=== PATIENT | female | born 1940 | race Caucasian/White ===

== ENCOUNTER 2017-12-31 09:27 | Inpatient (IN) ==
--- NOTE | 2017-12-31 09:00 | Discharge Summary ---
<Eliecer Robledo - Last Filed: 12/31/17 09:57> Orders not resulted at time of discharge: Pending orders 12/31/17 08:08 Left Shoulder Complete [XR shoulder complete LT] [XR] Routine Hemoglobin and Hematocrit [HEME] Routine Date of Encounter: 12/31/17 - Discharge Diagnosis (1) Rotator cuff tear arthropathy of left shoulder Priority: Primary Status: Chronic (2) Status post reverse total replacement of left shoulder Priority: Primary Status: Acute (3) Hypertension Priority: Secondary Status: Chronic Qualifiers: Hypertension type: unspecified Qualified Code(s): I10 - Essential (primary ) hypertension (4) Hyperlipidemia Priority: Secondary Status: Chronic Qualifiers: Hyperlipidemia type: unspecified Qualified Code(s): E78.5 - Hyperlipidemia , unspecified (5) Coronary artery disease Priority: Secondary Status: Chronic Qualifiers: Coronary Disease-Associated Artery/Lesion type: unspecified vessel or lesion type [place] vs. transplanted heart: [place] heart Associated angina: angina presence unspecified Qualified Code(s): I25.10 - Atherosclerotic heart disease of [place] coronary artery without angina pectoris (6) History of heart artery stent Priority: Secondary Status: Chronic (7) Chronic kidney disease, stage II (mild) Priority: Secondary Status: Chronic (8) COPD (chronic obstructive pulmonary disease) Priority: Secondary Status: Acute Qualifiers: COPD type: unspecified COPD Qualified Code(s): J44.9 - Chronic obstructive pulmonary disease, unspecified (9) Asthma Priority: Secondary Status: Chronic Qualifiers: Asthma severity: unspecified severity Asthma persistence: unspecified Asthma complication type: unspecified Qualified Code(s): J45.909 - Unspecified asthma, uncomplicated (10) Obesity (BMI 30.0-34.9) Priority: Secondary Status: Chronic - Hospital Course Hospital course: Ms. Beavers is a 77 year old female - Time Spent with Patient Total time spent providing and/or coordinating discharge services: - Discharge Medications Home Medications: Albuterol Sulfate [Ventolin Hfa] 2 puff IH Q4H PRN 12/31/17 [History] Aspirin [Lo-Dose Aspirin EC] 81 mg PO DAILY 12/31/17 [History] Atorvastatin [Lipitor] 40 mg PO DAILY 12/31/17 [History] Cholecalciferol (D-3) [Vitamin D] 1,000 unit PO DAILY 12/31/17 [History] Cyanocobalamin (Vitamin B-12) [Vitamin B-12] 5,000 mcg SL DAILY 12/31/17 [ History] Isosorbide MONOnitrate (24 HR) [Imdur] 60 mg PO DAILY 12/31/17 [History] Metoprolol Succinate [Toprol Xl] 50 mg PO DAILY 12/31/17 [History] OxyCODONE Immed Rel [Roxicodone 5 MG] 5 mg PO Q4HR PRN 5 Days #20 tablet [Rx] Valsartan 160 mg PO DAILY 12/31/17 [History] amLODIPine [Norvasc] 5 mg PO DAILY 12/31/17 [History] Allergies/Adverse Reactions: 3 Allergy/AdvReac Type Severity Reaction Status Date / Time bee venom protein (honey bee) Allergy Swelling Verified 12/31/17 09:54 of Lip/Tongue/Throat Iodinated Contrast- Oral and Allergy Swelling Verified 12/31/17 09:54 IV Dye of Lip/Tongue/Throat povidone-iodine AdvReac Itching Verified 12/31/17 09:54 [From Betadine] soap [From Betadine] AdvReac Itching Verified 12/31/17 09:54 Primary care physician: Mishel Bolden - Patient Status Disposition: Home Health Service Condition: Good - Discharge Instructions Follow Up With: Mishel Bolden [Primary Care Provider] - <Smita Antonio E - Last Filed: 01/01/18 16:03> Orders not resulted at time of discharge: Pending orders 12/31/17 09:46 US anesthesia pain block [US] Routine 01/02/18 04:00 Hemoglobin and Hematocrit [HEME] AM 0400 Date of Encounter: 01/01/18 Time of Encounter: 13:00 - Discharge Diagnosis (1) COPD (chronic obstructive pulmonary disease) Priority: Secondary Status: Chronic Qualifiers: COPD type: unspecified COPD Qualified Code(s): J44.9 - Chronic obstructive pulmonary disease, unspecified (2) Asthma Priority: Secondary Status: Chronic Qualifiers: Asthma severity: unspecified severity Asthma persistence: unspecified Asthma complication type: unspecified Qualified Code(s): J45.909 - Unspecified asthma, uncomplicated (3) Chronic kidney disease, stage II (mild) Priority: Secondary Status: Chronic (4) Coronary artery disease Priority: Secondary Status: Chronic Qualifiers: Coronary Disease-Associated Artery/Lesion type: unspecified vessel or lesion type [place] vs. transplanted heart: [place] heart Associated angina: angina presence unspecified Qualified Code(s): I25.10 - Atherosclerotic heart disease of [place] coronary artery without angina pectoris (5) History of heart artery stent Priority: Secondary Status: Chronic (6) Hyperlipidemia Priority: Secondary Status: Chronic Qualifiers: Hyperlipidemia type: unspecified Qualified Code(s): E78.5 - Hyperlipidemia , unspecified (7) Hypertension Priority: Secondary Status: Chronic Qualifiers: Hypertension type: unspecified Qualified Code(s): I10 - Essential (primary ) hypertension (8) Obesity (BMI 30.0-34.9) Priority: Secondary Status: Chronic (9) Status post reverse total replacement of left shoulder Priority: Primary Status: Acute (10) Rotator cuff tear arthropathy of left shoulder Priority: Primary Status: Chronic - Hospital Course Hospital course: Ms. Beavers is a 77 year old female POD#1 s/p Date of procedure: 12/31/17 Pre-op diagnosis: Left shoulder cuff tear arthropathy Post-op diagnosis: same Procedure: Total Shoulder Replacment Reverse, left Patient seen at bedside. Resting comfortably in bed with slingshot in place. Incision clean, dry, intact. Dressing intact. No drainage noted. [employer] strength intact. Neurovascularly intact. Alert and oriented x 3. Labwork and medications reviewed. Vital signs reviewed. Vital Signs Temp Pulse Resp BP Pulse Ox 01/01/18 11:02 98.7 F 82 17 138/81 96 01/01/18 07:44 97.9 F 95 17 175/90 94 01/01/18 05:29 148/79 01/01/18 03:49 16 96 01/01/18 03:22 98.3 F 100 17 168/92 96 12/31/17 23:48 99.7 F H 105 17 146/69 94 12/31/17 23:04 16 94 12/31/17 19:43 98.2 F 97 17 159/96 94 12/31/17 17:40 97.8 F 96 18 132/83 96 12/31/17 16:45 98.0 F 81 18 164/93 96 Intake and Output 01/01/18 01/01/18 01/01/18 07:59 15:59 23:59 Intake Total 340 / 340 Balance 340 / 340 Intake: Oral 340 / 340 Other: Meal Lunch Percent of Meal Consumed 90% Weight 79 kg Patient Weight 01/01/18 23:59 Weight 79 kg Pain control: Adequate - Tizanidine added. Participating in PT. All questions and concerns addressed. Educated on use of incentive spirometer, ambulation, and hydration. Patient educated on post-operative restrictions and care. Addressed: see above. D/C plan: home w/ HH today - Time Spent with Patient Total time spent providing and/or coordinating discharge services: Less than 30 minutes Date of admission: 12/31/17 13:07 Primary care physician: Mishel Bolden Consults: 12/31/17 14:01 Consult to Physical Therapy [CONS] Routine Comment: post shoulder surgery Reason for Consult: post shoulder surgery Does patient have active BEDREST order?: No Is patient medically & hemodynamically stable?: Yes RT Post Op Consult [CONS] Routine Anticipated date of discharge: 01/01/18 Labs on day of discharge: Labs from last 24 hours 01/01/18 00:29 Hgb 12.6 Hct 37.5 Short CBC 01/01/18 Range/Units 00:29 Hgb 12.6 (11.5-15.4) g/dL Hct 37.5 (35.3-44.9) % - Impressions ITS Impressions Shoulder X-Ray 12/31/17 08:08 IMPRESSION: Status post left shoulder arthroplasty without acute postoperative complication. D/ / 12/31/2017 13:12:48 Jonathan Crain MD / Maria Ines Nolasco Interpreting Provider: Jonathan Crain MD - Patient Status Functional capacity at discharge: independent ambulation Overall status at discharge: patient is progressing back to baseline - Diet and Activity Activity: as per physical therapy Diet: advance to your usual diet
--- NOTE | 2017-12-31 09:48 | Anesthesia Evaluation PreOp ---
Date of Encounter: 12/31/17 Time of Encounter: 09:46 - Past History Planned Operation: Left Total Shoulder Cardiac History: HTN, Hyperlipidemia, Cardiac Stent (2009) Pulmonary History: Asthma, COPD VACCINES SOLUTIONS SPECIALIST History: Other (depression/anxiety) Other Medical History: Renal (Stage II CRD), GERD, Other (Vit. D Def., glaucoma) Anesthesia History: Past Anesthesia (R. Knee, Hyst, Neck sx, R. TSR 2014) : No Test: Positive Drug use: none Medications and Allergies Albuterol Sulfate [Ventolin Hfa] 2 puff IH Q4H PRN 12/31/17 [History] Aspirin [Lo-Dose Aspirin EC] 81 mg PO DAILY 12/31/17 [History] Atorvastatin [Lipitor] 40 mg PO DAILY 12/31/17 [History] Cholecalciferol (D-3) [Vitamin D] 1,000 unit PO DAILY 12/31/17 [History] Cyanocobalamin (Vitamin B-12) [Vitamin B-12] 5,000 mcg SL DAILY 12/31/17 [ History] Isosorbide MONOnitrate (24 HR) [Imdur] 60 mg PO DAILY 12/31/17 [History] Metoprolol Succinate [Toprol Xl] 50 mg PO DAILY 12/31/17 [History] OxyCODONE Immed Rel [Roxicodone 5 MG] 5 mg PO Q4HR PRN 5 Days #20 tablet [Rx] Valsartan [Valsartan] 160 mg PO DAILY 12/31/17 [History] amLODIPine [Norvasc] 5 mg PO DAILY 12/31/17 [History] 3 Allergy/AdvReac Type Severity Reaction Status Date / Time bee venom protein (honey bee) Allergy Swelling Verified 12/31/17 09:54 of Lip/Tongue/Throat Iodinated Contrast- Oral and Allergy Swelling Verified 12/31/17 09:54 IV Dye of Lip/Tongue/Throat povidone-iodine AdvReac Itching Verified 12/31/17 09:54 [From Betadine] soap [From Betadine] AdvReac Itching Verified 12/31/17 09:54 - Meds/Allergy Pre-op Review Medications Reviewed: Yes Allergies Reviewed: Yes Beta Blockers on Current Med List: Yes If Beta Blockers taken, Date/Time (Last Dose taken): 12/31/2017 @ 05:30 Anesthesia Results - Labs Laboratory Tests 12/19/17 12/19/17 12/19/17 12:40 12:40 12:40 WBC 6.6 Hgb 13.1 Hct 40.5 Plt Count 217 INR 1.0 Sodium 141 Potassium 4.0 Chloride 107 Carbon Dioxide 28 BUN 18 Creatinine 1.07 Exercise Nuclear Stress 2 day Name: Viviane Beavers Date of Study: 03/26/2017 Impression: Perfusion imaging was negative for ischemia or infarct. Pharmacologic stress ECG is negative for ischemia at level of heart rate achieved. Gated EF > 70%. - Imaging EKG: report reviewed (SINUS RHYTHM BORDERLINE LEFT AXIS DEVIATION) Anesthesia Exam O2 Sat Height 1.55 m Height 1.55 m Weight 77.564 kg Weight 77.564 kg O2 Sat by Pulse Oximetry 98 Vital Signs Temp Pulse Resp BP Pulse Ox 97.7 F 71 18 199/86 98 12/31/17 09:49 12/31/17 09:49 12/31/17 09:49 12/31/17 09:49 12/31/17 09:49 NPO (# of Hours): > 8 hrs Pain Scale: 0 Pain Scale Used: Numeric (1 - 10) - HEENT Pupil (Motor): Pupils equal, EOMI Mallampati: I Teeth: Normal Oral Opening: Greater than 3 - VACCINES SOLUTIONS SPECIALIST LOC: Oriented VACCINES SOLUTIONS SPECIALIST Motor: Normal RUE, Normal LUE, Normal RLE, Normal LLE, Normal Face VACCINES SOLUTIONS SPECIALIST Sensory: Normal: RUE, LUE, RLE, LLE, Face - Cardiac Rhythm: Regular Murmur: None JVD: No Carotid Bruit: No - Pulmonary Breath Sounds: bilateral Clear Respiratory Effort: Symmetrical Anesthesia Assess/Plan ASA Score: 3 Modified [place] Scale for Level of Consciousness: Cooperative, oriented, and tranquil Anesthetic Plan: General, Regional Monitoring Plan: Standard Monitors Recovery Plan: PACU
--- NOTE | 2017-12-31 09:56 | History & Physical Report ---
Date of Encounter: 12/31/17 Time of Encounter: 09:56 24 Hour HP Update - Instructions Instructions: If the History and Physical is less than 30 days old and was completed prior to A.M. admission and or procedure and has NOT been updated on calendar day of procedure please complete this update prior to performing procedure. - Update Patient reports changes in Medical Condition: No Changes in examination, assessment, or condition: No Changes in Medication: No Preop tests/diagnostics Reviewed: Yes Surgery Remains Indicated: Yes Consent for Planned Operative Procedure(s) Verified: Yes - Pre-Operative Checklist Preoperative Checklist Indicated: No Prophylactic Antibiotic Ordered: Yes Is VTE Prophylaxis Indicated?: Yes
[2017-12-31] MEDS ORDERED: *HR* Propofol 200 MG/20 ML VIAL IVP ONE (10:03)
[2017-12-31] MEDS ORDERED: Ondansetron 4 MG/2 ML VIAL ONE (10:04)
[2017-12-31] MEDS ORDERED: *HR* FentaNYL (PF) 100 MCG/2 ML VIAL ONE (10:04)
[2017-12-31] MEDS ORDERED: Dexamethasone 4 MG/ML VIAL ONE (10:04)
[2017-12-31] MEDS ORDERED: Lidocaine -MPF 2% 2 ML VIAL ONE (10:04)
[2017-12-31] MEDS ORDERED: *HR* Succinylcholine 200 MG/10 ML VIAL IVP ONE (10:04)
[2017-12-31] MEDS ORDERED: Lidocaine -MPF 4% 5 ML AMPUL ONE (10:04)
[2017-12-31] MEDS ORDERED: *HR* Rocuronium Bromide 50 MG/5 ML VIAL ONE (10:04)
[2017-12-31] MEDS ORDERED: *HR* Midazolam HCl 2 MG/2 ML VIAL ONE (10:04)
[2017-12-31] MEDS ORDERED: CeFAZolin Syr 2,000MG/20 ML 2,000 MG/20 ML SYRINGE IVPB ONE (10:12)
[2017-12-31] MEDS ORDERED: Albuterol 2.5 MG/3 ML NEBULIZER IH ONE (10:12)
[2017-12-31] MEDS ORDERED: Albuterol 2.5 MG/3 ML NEBULIZER ONE (10:14)
[2017-12-31] MEDS ORDERED: Ringers Solution, Lactated 1,000 ML IVC SCH ×2 (10:15→14:01)
[2017-12-31] MEDS ORDERED: ROPIVACAINE HCL/PF 0.5% 30 ML VIAL ONE (10:18)
[2017-12-31] MEDS ORDERED: Bupivacaine/Clonidine Syringe 1 EACH SYRINGE ONE (10:19)
--- NOTE | 2017-12-31 11:10 | Anesthesia Procedures ---
Date of Encounter: 12/31/17 Time of Encounter: 10:45 Procedures: Anesthesia - Nerve Block Procedure Date: 12/31/17 Time: 10:45 Allergies/Adv Reactions: Allergies noted, no complications with block Pre-op Diagnosis: Left shoulder rotator cuff arthropathy Surgical Procedure: Left total shoulder Checklist: Correct Patient Identifier, Correct procedure, History checked Correct side: Left Blood Thinner: No Monitor Applied: EKG, BP, Pulse Oximetry Supplemental Oxygen via Nasal Cannula (L/min): 3 Sedation: Versed (mg): 2 Sedation: Fentanyl (mcg): 100 Indication: Post Op Analgesia Pre-op Neuro Deficits: No Block Type: Supraclavicular, Other (Superficial interscalene) Catheter placed: No Sterile Technique: Yes Ultrasound used: Yes Anatomy identified: Yes Visual spread of Local: Yes Neuro Stimulation: No Blood on Needle Aspiration: No Smooth Injection of Local: Yes Pain with Injection of Local: No Prep: Chlorhexadine Needle: 22 x 50 mm Stimuplex Local: 0.25% Bupivicaine w/Clonidine 20 mcg/cc (10ml), Ropivacaine (30ml 0.5%) Number of Attempts: 1 Complications: None/effective block Vitals: Vital Signs/O2 Sat/Glucose, Most Recent Temp Pulse Resp BP Pulse Ox 97.7 F 80 18 148/95 97 12/31/17 09:49 12/31/17 10:45 12/31/17 10:32 12/31/17 10:45 12/31/17 10:45
[2017-12-31] MEDS ORDERED: *HR* FentaNYL (PF) 100 MCG/2 ML VIAL IVP PRN (11:36)
[2017-12-31] MEDS ORDERED: *HR* OxyCODONE Immed Rel 5 MG TABLET PO PRN (11:36)
[2017-12-31] MEDS ORDERED: *HR* Promethazine 25 MG/ML VIAL IVP PRN (11:36)
[2017-12-31] MEDS ORDERED: EPHEDrine 50 MG/ML VIAL ONE (12:06)
--- NOTE | 2017-12-31 12:16 | Orthopedic Operative Note ---
Date of procedure: 12/31/17 Pre-op diagnosis: Left shoulder cuff tear arthropathy Post-op diagnosis: same Procedure: Procedure: Total Shoulder Replacment Reverse, left Estimated blood loss: 100 cc Hardware: Metal and polyethylene replacement: Arthrex small glenoid baseplate, 2 4.5 screws. 1 6.5 screw, 39+4 glenosphere, 7 humeral stem, poly insert 6 Exam Under anesthesia: Full motion no instability Procedural Notes: Irreparable tear supraspinatus and subscapularis Operative procedure: The patient was brought to the operating room and placed on the operating room table. After general anesthesia was administered the operative shoulder was examined. Findings were noted. The patient was placed in the modified beachchair position. All pressure points were padded appropriately. And the head was stabilized in the neutral position. The operative extremity was prepped and draped in the sterile surgical fashion. The patient received IV antibiotics prior to skin incision. A standard deltopectoral approach was made to the operative shoulder. Incision was made to the skin and subcutaneous tissue,hemo stasis was obtained with Bovie cautery. Using careful blunt dissection the cephalic vein was identified and mobilized medially. The deltopectoral interval was developed and the clavipectoral fascia was incised. The subscap was irreparable. The humerus was dislocated patient noted to have irreparable tear supraspinatus tendon, and the humeral cut was made along the anatomic neck. Anterior and posterior Bankart retractors were placed to expose the glenoid. The glenoid guide was seated and the centering hole was made. It was reamed with the appropriate reamer. The small baseplate was seated and secured with (2) 4.5 screws and one 6.5 screw. The baseplate was irrigated and dried and the 39+4 Glenosphere was seated and secured with the Kent taper. The Kent taper was tested and found to be secure the humerus was redislocated and prepared with the diaphyseal reamers, followed by a broaching process up to the appropriate size 7 in the patient's anatomic version. The metaphyseal reamer was then utilized. Trial reduction found the shoulder to be relocatable. Trial components were removed and the 7 stem was impacted in place in the patient's anatomic version. Trial reduction found the shoulder to be relocatable and stable with the appropriate 6. Trial component was removed and the 6 Janiya was seated and secured the shoulder was reduced. The shoulder had excellent motion and excellent stability and no evidence of dislocation. The deep tissue was irrigated with pulse irrigation. The deltopectoral interval was closed with a running #1 PDS suture, subcutaneous tissue was irrigated and closed with 0 PDS suture, the skin was closed with Dermabond. The patient was placed in a sterile dressing, abduction brace and extubated. The patient was then transferred to the recovery room in stable condition. Anesthesia: GETA Surgeon: Eliecer Robledo Was there an sales assistant present: No Estimated blood loss (cc): 100 Condition: stable Disposition: PACU
[2017-12-31] MEDS: *HR* Labetalol 100 MG/20 ML MDV IVP PRN ×2 (12:33→12:41)
--- NOTE | 2017-12-31 13:01 | Anesthesia Evaluation Post Op ---
Date of Encounter: 12/31/17 Time of Encounter: 13:00 - Vital Signs Vital Signs: Vital Signs/O2 Sat, Most Current Temp Pulse Resp BP Pulse Ox 97.4 F L 78 16 151/85 94 12/31/17 12:55 12/31/17 12:55 12/31/17 12:55 12/31/17 12:55 12/31/17 12:55 - Lungs Lungs: Clear Ascult./Percussion - Airway Airway: Non-obstructed - Cardiovascular Regular Rate - Mental Status Mental Status: Alert & Oriented, Answers Appropriately - Pain Pain Scale: 0 - Nausea Vomiting Nausea Vomiting: Not Present - Hydration Hydration: Tolerates oral liquids - Discharge PostOp Status: Transfer Patient to floor
[2017-12-31 13:13] LABS: Hematocrit 36.9 % (35.3-44.9); Hemoglobin 12.2 g/dL (11.5-15.4)
[2017-12-31] MEDS ORDERED: MOM Conc 10 ML UD.LIQ PO PRN (14:01)
[2017-12-31] MEDS ORDERED: Ondansetron 4 MG/2 ML VIAL IVP PRN (14:01)
[2017-12-31] MEDS ORDERED: Temazepam 15 MG CAPSULE PO PRN (14:01)
[2017-12-31] MEDS ORDERED: traMADol 50 MG TABLET PO PRN (14:01)
[2017-12-31] MEDS ORDERED: Naloxone 0.4 MG/ML INJ IVP PRN (14:01)
[2017-12-31] MEDS ORDERED: *HR* OxyCODONE/APAP 5/325 TABLET PO PRN (14:01)
[2017-12-31] MEDS ORDERED: Sennosides 8.6 MG TABLET PO PRN (14:01)
[2017-12-31] MEDS: *HR* Enoxaparin 30 MG/0.3 ML SYRINGE SQ SCH (16:52)
[2017-12-31] MEDS ORDERED: *HR* Enoxaparin 30 MG/0.3 ML SYRINGE SQ SCH (18:00)
[2018-01-01 00:39] LABS: Hematocrit 37.5 % (35.3-44.9); Hemoglobin 12.6 g/dL (11.5-15.4)
[2018-01-01] MEDS: *HR* OxyCODONE Immed Rel 5 MG TABLET PO PRN ×3 (03:01→12:12)
[2018-01-01] MEDS: *HR* Enoxaparin 30 MG/0.3 ML SYRINGE SQ SCH (06:28)
--- NOTE | 2018-01-01 06:40 | Orthopedics Progress Note ---
Date of Encounter: 01/01/18 Time of Encounter: 06:39 - Assessment and Plan (1) Rotator cuff tear arthropathy of left shoulder Current Visit: No Status: Chronic (2) Status post reverse total replacement of left shoulder Current Visit: No Status: Acute (3) Hypertension Current Visit: Yes Status: Chronic Qualifiers: Hypertension type: unspecified Qualified Code(s): I10 - Essential (primary ) hypertension (4) Hyperlipidemia Current Visit: Yes Status: Chronic Qualifiers: Hyperlipidemia type: unspecified Qualified Code(s): E78.5 - Hyperlipidemia , unspecified (5) Coronary artery disease Current Visit: Yes Status: Chronic Qualifiers: Coronary Disease-Associated Artery/Lesion type: unspecified vessel or lesion type [place] vs. transplanted heart: [place] heart Associated angina: angina presence unspecified Qualified Code(s): I25.10 - Atherosclerotic heart disease of [place] coronary artery without angina pectoris (6) History of heart artery stent Current Visit: Yes Status: Chronic (7) Chronic kidney disease, stage II (mild) Current Visit: Yes Status: Chronic (8) COPD (chronic obstructive pulmonary disease) Current Visit: Yes Status: Acute Qualifiers: COPD type: unspecified COPD Qualified Code(s): J44.9 - Chronic obstructive pulmonary disease, unspecified (9) Asthma Current Visit: Yes Status: Chronic Qualifiers: Asthma severity: unspecified severity Asthma persistence: unspecified Asthma complication type: unspecified Qualified Code(s): J45.909 - Unspecified asthma, uncomplicated (10) Obesity (BMI 30.0-34.9) Current Visit: Yes Status: Chronic Subjective Interval history: Patient was seen this morning doing well without complaints. Afebrile vital signs stable. Operative extremity: Neurovascularly intact Dressing clean dry and intact Calves nontender Assessment and plan: Continue with postoperative care Hematocrit 37 discharged today Objective Vital signs: Vital Signs Temp Pulse Resp BP Pulse Ox 01/01/18 05:29 148/79 01/01/18 03:49 16 96 01/01/18 03:22 98.3 F 100 17 168/92 96 12/31/17 23:48 99.7 F H 105 17 146/69 94 12/31/17 23:04 16 94 12/31/17 19:43 98.2 F 97 17 159/96 94 12/31/17 17:40 97.8 F 96 18 132/83 96 12/31/17 16:45 98.0 F 81 18 164/93 96 12/31/17 15:40 97.6 F 84 18 135/82 94 12/31/17 14:50 97.9 F 76 16 168/89 95 12/31/17 14:20 97.6 F 72 16 163/88 93 12/31/17 13:50 94 12/31/17 13:47 98.2 F 78 16 172/107 94 12/31/17 12:55 97.4 F L 78 16 151/85 94 12/31/17 12:45 79 16 147/90 95 12/31/17 12:35 78 16 156/101 95 12/31/17 12:25 97.9 F 82 16 169/104 100 12/31/17 10:45 80 148/95 97 12/31/17 10:33 176/92 12/31/17 10:32 18 199/86 98 12/31/17 09:49 97.7 F 71 18 199/86 98 Intake and Output 12/31/17 12/31/17 01/01/18 15:59 23:59 07:59 Intake Total 100 / 100 Output Total 100 / 100 Balance -100 / -100 100 / 100 Intake: IV Fluids 100 / 100 Ancef 2,000 MG In 0.9 % Sodium 100 / 100 Chloride 100 ML @ 200 mls/hr IVPB Q8HR GREG Rx#:[id number] Output: Estimated Blood Loss 100 / 100 Other: # Voids 1 Weight 77.564 kg 79 kg Patient Weight 01/01/18 23:59 Weight 79 kg - Labs CBC & BMP: 01/01/18 00:29 - VTE Documentation of Mechanical Device: Intermittent pneumatic compression device Consult Discharge Plan - Plan Referrals: Mishel Bolden [Primary Care Provider] -
[2018-01-01] MEDS ORDERED: Valsartan 160 MG TABLET PO SCH (09:00)
[2018-01-01] MEDS ORDERED: Metoprolol XL (24 HR) Succ 50 MG TAB.ER.24H PO SCH (09:00)
[2018-01-01] MEDS ORDERED: amLODIPine 5 MG TABLET PO SCH (09:00)
[2018-01-01] MEDS ORDERED: Aspirin Enteric Coated 81 MG Tablet PO SCH (09:00)
[2018-01-01] MEDS ORDERED: Cyanocobalamin (B-12) 1,000 MCG TABLET PO SCH (09:00)
[2018-01-01] MEDS ORDERED: Cholecalciferol (D-3) 1,000 UNIT TABLET PO SCH (09:00)
[2018-01-01] MEDS ORDERED: Isosorbide MONOnitrate (24 HR) 60 MG TAB.ER.24H PO SCH (09:00)
[2018-01-01 11:03] VITALS: BP 138/81
[2018-01-01] MEDS ORDERED: Acetaminophen IV 1,000 MG/100 ML INFUS..BTL IVPB ONE (13:23)
--- NOTE | 2018-01-01 15:16 | Physician Discharge Referral ---
Home Health/Hosp Referral Info Transfer to: Home Health Attending Provider: Dr. Eliecer Robledo Provider in Charge Post Discharge: PCP - Diagnosis (1) COPD (chronic obstructive pulmonary disease) Priority: Secondary Status: Acute (2) Asthma Priority: Secondary Status: Chronic (3) Chronic kidney disease, stage II (mild) Priority: Secondary Status: Chronic (4) Coronary artery disease Priority: Secondary Status: Chronic (5) History of heart artery stent Priority: Secondary Status: Chronic (6) Hyperlipidemia Priority: Secondary Status: Chronic (7) Hypertension Priority: Secondary Status: Chronic (8) Obesity (BMI 30.0-34.9) Priority: Secondary Status: Chronic (9) Status post reverse total replacement of left shoulder Priority: Primary Status: Acute (10) Rotator cuff tear arthropathy of left shoulder Priority: Primary Status: Chronic - Respiratory Orders Smoking Cessation: Smoking cessation has been advised. For more information, call the [place] Tobacco Quit Line at 4-309-ITJC-NOW. - Dressing/Wound Care Site: left shoulder Type of Dressing/Treatments w/Frequency: Opsite placed. Keep dressing intact until first follow up appointment. If greater than 50% saturated, notify office, remove dressing and place appropriate dressing back in place. Leave Zipline intact. Opsite dressing is water resistant, not water-proof. OK to shower, but do not get dressing wet. - Diet/Nutrition Diet/Nutrition Orders: Regular - Activity Activity Orders: Up ad darryn, Ambulate, Chair - Services Needed Following services are medically necessary services: Nursing, Home Health Aide, Physical Therapy, Occupational Therapy Home Care Orders: PT/OT. NWB to affected upper extremity. Follow Shoulder Precautions x 6 weeks. Stay in brace during activity and at night. Remove brace during exercises. ICE and elevate extremity frequently throughout the day. - Transfer Medications Home Medications: Albuterol Sulfate [Ventolin Hfa] 2 puff IH Q4H PRN 12/31/17 [History] Aspirin [Lo-Dose Aspirin EC] 81 mg PO DAILY 12/31/17 [History] Atorvastatin [Lipitor] 40 mg PO DAILY 12/31/17 [History] Cholecalciferol (D-3) [Vitamin D] 1,000 unit PO DAILY 12/31/17 [History] Cyanocobalamin (Vitamin B-12) [Vitamin B-12] 5,000 mcg SL DAILY 12/31/17 [ History] Isosorbide MONOnitrate (24 HR) [Imdur] 60 mg PO DAILY 12/31/17 [History] Metoprolol Succinate [Toprol Xl] 50 mg PO DAILY 12/31/17 [History] OxyCODONE Immed Rel [Roxicodone 5 MG] 5 mg PO Q4HR PRN 5 Days #20 tablet [Rx] Valsartan 160 mg PO DAILY 12/31/17 [History] amLODIPine [Norvasc] 5 mg PO DAILY 12/31/17 [History] Allergies/Adverse Reactions: 3 Allergy/AdvReac Type Severity Reaction Status Date / Time bee venom protein (honey bee) Allergy Swelling Verified 12/31/17 09:54 of Lip/Tongue/Throat Iodinated Contrast- Oral and Allergy Swelling Verified 12/31/17 09:54 IV Dye of Lip/Tongue/Throat povidone-iodine AdvReac Itching Verified 12/31/17 09:54 [From Betadine] soap [From Betadine] AdvReac Itching Verified 12/31/17 09:54 Certification: Further, I certify that my clinical findings support that this patient is homebound (i.e. absences from home require considerable and taxing effort and are for medical reasons or hoahaoism services or infrequently or short duration when for other reasons) because: Homebound Reason: Post-surgery restriction and or conditions limit ability to leave home Attestation: My signature below is to certify that this patient is under my care and that I, or nurse practitioner, or a physician dental chairside assistant working with me, has a face-to- face encounter with this patient.
== END 2018-01-01 15:23 | disposition home health service (06) | DRG 483 ==
LOC: SAMDAY 09:27 → 3NENU 13:07
PROVIDERS: ADMIT Orthopaedic Surgery; ATTEND Orthopaedic Surgery